=== PATIENT | male | born 1975 | race Caucasian/White ===

== ENCOUNTER 2018-02-21 13:10 | Emergency (ER) | payer OTHER ==
[~2018-02-21] VITALS: Ht 165.1 cm; Wt 77.6 kg
[2018-02-21 13:22] VITALS: Ht 165.1 cm; Wt 77.6 kg
[2018-02-21 14:15] VITALS: BP 134/93
== END 2018-02-21 14:15 | disposition home or self-care (01) ==
LOC: ED 13:10
DX: H60.92 Unspecified otitis externa, left ear (principal); H93.19 Tinnitus, unspecified ear